=== PATIENT | male | born 1965 | race Caucasian/White ===

== ENCOUNTER 2017-01-03 20:37 | Observation (INO) | payer MEDICARE ==
[~2017-01-03] VITALS: Ht 167.6 cm; Wt 68.0 kg
[2017-01-03 20:48] VITALS: BP 144/80; PULSE 90; RESP 14; TEMP 98; O2SAT 99
[2017-01-03] MEDS ORDERED: ASPIRIN 81 MG CHEW TAB PO ONE (21:00)
[2017-01-03] MEDS ORDERED: SODIUM CHLORIDE 0.9% FLUSH 5 ML FLUSH IVF PRN (21:00)
[2017-01-03] MEDS ORDERED: SODIUM CHLORID 0.9% 500 ML INJ 500 ML IV ONE (21:00)
--- NOTE | 2017-01-03 21:11 | PD ---
HPI Chief Complaint: Chest Pain Time Seen by Provider: 21:00 Travel History International Travel<30 days: No Contact w/Intl Traveler<30days: No Traveled to known affect area: No History of Present Illness HPI Patient is a 51-year-old male presenting to emergency for evaluation of chest pain. Patient states the pain started approximately 1 hour prior to arrival, he localizes over the left anterior chest wall. He also reports shortness of breath and nausea. Patient does have a history of asthma/COPD and is been out of his inhaler for approximately one week. Patient denies any fever, chills, abdominal pain, radiation of the chest pain. He states the chest pain is worse with respirations. He reports the pain as a 6 out of 10 and describes it as sharp. Patient's past medical history again includes COPD, asthma, anxiety. He is on Xanax 3 times daily for this however he has been out for a week. He is from [place], he came here with friends for bike week and he hasn't been able to find his friend since this morning. He currently has nowhere to stay and is no way to get home. Patient has a primary care provider Dr. Joe Landaverde in [place]. [facility] Past Medical History Asthma: Yes Anxiety: Yes COPD: Yes Diminished Hearing: No Tetanus Vaccination: Unknown Influenza Vaccination: No Past Surgical History Other Surgery: Yes (FACIAL SX, LT ELBOW) Social History Alcohol Use: Yes Tobacco Use: Yes Substance Use: No Allergies-Medications (Allergen,Severity, Reaction): Coded Allergies: Tramadol (Verified Allergy, Severe, Swelling, 01/03/17) Review of Systems Except as stated in HPI: all other systems reviewed are Neg HENT: No: Headaches Cardiovascular: Positive: Chest Pain or Discomfort, No: Dyspnea on exertion Respiratory: Positive: Shortness of Breath, No: Cough, Wheezing, Pleuritic Pain Gastrointestinal: Positive: Nausea, No: Vomiting, Diarrhea, Abdominal Pain Genitourinary: No: Dysuria Musculoskeletal: No: Myalgias Neurologic: No: Dizziness, Syncope, Focal Abnormalities, Change in Mentation Physical Exam Narrative GENERAL: Well-developed, well-nourished, alert male. Resting comfortably in no acute distress. SKIN: Warm and dry. HEAD: Atraumatic. Normocephalic. EYES: Pupils equal and round. No scleral icterus. No injection or drainage. ENT: No nasal bleeding or discharge. Mucous membranes pink and moist. NECK: Trachea midline. No JVD. CARDIOVASCULAR: Tachycardic. No murmur appreciated. RESPIRATORY: No accessory muscle use. Clear to auscultation. Breath sounds equal bilaterally. No wheezing, rhonchi, rales noted. GASTROINTESTINAL: Abdomen soft, non-tender, nondistended. Hepatic and splenic margins not palpable. MUSCULOSKELETAL: No obvious deformities. No clubbing. No cyanosis. No edema. NEUROLOGICAL: Awake and alert. No obvious cranial nerve deficits. Motor grossly within normal limits. Normal speech. PSYCHIATRIC: Appropriate mood and affect; insight and judgment normal. Data Data Last Documented VS Vital Signs Date Time Temp Pulse Resp B/P Pulse Ox O2 Delivery O2 Flow Rate FiO2 01/03/17 21:14 16 100 Room Air 01/03/17 20:49 89 01/03/17 20:48 98.0 144/80 Orders Ckmb (Isoenzyme) Profile (01/03/17 21:00) Complete Blood Count With Diff (01/03/17 21:00) Comprehensive Metabolic Panel (01/03/17 21:00) Magnesium (Mg) (01/03/17 21:00) Prothrombin Time / Inr (Pt) (01/03/17 21:00) Act Partial Throm Time (Ptt) (01/03/17 21:00) Troponin I (01/03/17 21:00) Chest, Single Ap (01/03/17 21:00) Ecg Monitoring (01/03/17 21:00) Bilateral Bp Monitoring (01/03/17 21:00) Iv Access Insert/Monitor (01/03/17 21:00) Oximetry (01/03/17 21:00) Oxygen Administration (01/03/17 21:00) Aspirin Chew (Aspirin Chew) (01/03/17 21:00) Sodium Chloride 0.9% Flush (Ns Flush) (01/03/17 21:00) Sodium Chlorid 0.9% 500 Ml Inj (Ns 500 M (01/03/17 21:00) Electrocardiogram (01/03/17 21:04) CKMB (01/03/17 22:10) CKMB% (01/03/17 22:10) Activity Bed Rest With Brp (01/04/17 00:58) Vital Signs (Adult) Q4H (01/04/17 00:58) Cardiac Rhythm .As Directed (01/04/17 00:58) ^ Notify Dr: Other .PRN (01/04/17 00:58) ^ Notify DrWatson Parameters (01/04/17 00:58) Resp Oxygen Nasal Cannula (01/04/17 ) Ckmb (Isoenzyme) Profile (01/04/17 01:00) Ckmb (Isoenzyme) Profile (01/04/17 04:00) Troponin I (01/04/17 01:00) Troponin I (01/04/17 04:00) Electrocardiogram (01/04/17 01:00) ^ Obtain (01/04/17 00:58) Sodium Chloride 0.9% Flush (Ns Flush) (01/04/17 01:00) Sodium Chloride 0.9% Flush (Ns Flush) (01/04/17 09:00) Hose Finisher / Telemetry MARISSA.Q8H (01/04/17 00:58) Admit Order (Ed Use Only) (01/04/17 ) Labs Laboratory Tests Test 01/03/17 22:10 White Blood Count 8.1 TH/MM3 Red Blood Count 4.69 MIL/MM3 Hemoglobin 13.2 GM/DL Hematocrit 39.5 % Mean Corpuscular Volume 84.2 FL Mean Corpuscular Hemoglobin 28.2 PG Mean Corpuscular Hemoglobin 33.5 % Concent Red Cell Distribution Width 14.6 % Platelet Count 514 TH/MM3 Mean Platelet Volume 7.3 FL Neutrophils (%) (Auto) 52.3 % Lymphocytes (%) (Auto) 35.7 % Monocytes (%) (Auto) 8.3 % Eosinophils (%) (Auto) 1.9 % Basophils (%) (Auto) 1.8 % Neutrophils # (Auto) 4.3 TH/MM3 Lymphocytes # (Auto) 2.9 TH/MM3 Monocytes # (Auto) 0.7 TH/MM3 Eosinophils # (Auto) 0.2 TH/MM3 Basophils # (Auto) 0.1 TH/MM3 CBC Comment DIFF FINAL Differential Comment Prothrombin Time 10.8 SEC Prothromb Time International 1.0 RATIO Ratio Activated Partial 27.8 SEC Thromboplast Time Sodium Level 141 MEQ/L Potassium Level 3.6 MEQ/L Chloride Level 106 MEQ/L Carbon Dioxide Level 24.7 MEQ/L Anion Gap 10 MEQ/L Blood Urea Nitrogen 13 MG/DL Creatinine 0.91 MG/DL Estimat Glomerular Filtration 88 ML/MIN Rate Random Glucose 96 MG/DL Calcium Level 8.8 MG/DL Magnesium Level 2.1 MG/DL Total Bilirubin 0.2 MG/DL Aspartate Amino Transf 19 U/L (AST/SGOT) Alanine Aminotransferase 44 U/L (ALT/SGPT) Alkaline Phosphatase 80 U/L Total Creatine Kinase 110 U/L Creatine Kinase MB 1.0 NG/ML Troponin I LESS THAN 0.02 NG/ML Total Protein 7.3 GM/DL Albumin 3.4 GM/DL MDM Medical Decision Making Medical Screen Exam Complete: Yes Emergency Medical Condition: Yes Interpretation(s) Vital Signs Date Time Temp Pulse Resp B/P Pulse Ox O2 Delivery O2 Flow Rate FiO2 01/03/17 20:49 89 16 100 Room Air 01/03/17 20:48 98.0 90 14 144/80 99 Differential Diagnosis Chest pain versus chest wall pain versus anxiety versus unstable angina versus pleurisy versus other Narrative Course Patient is a 51-year-old male presenting to emergency for evaluation of chest pain. The pain started approximately an hour prior to arrival. Is localized over the left chest wall. Patient reports a history of anxiety, his anxiety has been heightened since he has lost contact with his [facility]. Patient has been unable to find his friend since this morning. He has no way home at this time. Abscess and imaging ordered and pending. Patient is resting comfortably, his vital signs are stable. Care of Patient is transferred to my attending physician who will determine patient's disposition. Johanna Cheung Jan 03, 2017 21:11
[2017-01-03 21:14] VITALS: RESP 16; O2SAT 100
--- NOTE | 2017-01-03 22:21 | RADRPT ---
EXAM DATE/TIME: 01/03/2017 21:25 [facility] COMPARISON: No previous studies available for comparison. INDICATIONS : Chest pain. MEDICAL HISTORY : Chronic obstructive pulmonary disease. Asthma. SURGICAL HISTORY : None. ENCOUNTER: Initial ACUITY: 1 day PAIN SCORE: 6/10 LOCATION: chest FINDINGS: A single view of the chest demonstrates the lungs to be symmetrically aerated without evidence of mas s, infiltrate or effusion. The cardiomediastinal contours are unremarkable. Osseous structures are intact. CONCLUSION: No acute disease. Wilfredo Toledo MD on January 03, 2017 at 22:20 Board Certified Radiologist. This report was verified electronically.
[2017-01-03 22:46] LABS: AUTOMATED NEUTROPHIL # 4.3 TH/MM3 (1.8-7.7); BASOPHIL # 0.1 TH/MM3 (0-0.2); BASOPHIL % 1.8 % (0.0-2.0); EOSINOPHIL # 0.2 TH/MM3 (0-0.4); EOSINOPHIL % 1.9 % (0.0-4.0); HEMATOCRIT 39.5 % (39.0-51.0); HEMO FLAGS DIFF FINAL; LYMPH % 35.7 % (9.0-44.0); LYMPHOCYTE # 2.9 TH/MM3 (1.0-4.8); MEAN CELL VOLUME 84.2 FL (80.0-100.0); MEAN CORPUSCULAR HEMOGLOBIN 28.2 PG (27.0-34.0); MEAN CORPUSCULAR HGB CONC 33.5 % (32.0-36.0); MONO % 8.3 % (0.0-8.0); NEUT % 52.3 % (16.0-70.0); PLATELET COUNT 514 TH/MM3 (150-450); RED BLOOD COUNT 4.69 MIL/MM3 (4.50-5.90); RED CELL DISTRIBUTION WIDTH 14.6 % (11.6-17.2); WHITE BLOOD COUNT 8.1 TH/MM3 (4.0-11.0)
[2017-01-03 23:00] LABS: APTT (PATIENT) 27.8 SEC (24.3-30.1); PROTHROMBIN TIME - PATIENT 10.8 SEC (9.8-11.6)
[2017-01-03 23:11] LABS: ANION GAP 10 MEQ/L (5-15); AST (GOT) 19 U/L (15-37); BICARBONATE 24.7 MEQ/L (21.0-32.0); BLOOD UREA NITROGEN 13 MG/DL (7-18); CHLORIDE 106 MEQ/L (98-107); GLOMERULAR FILTRATION RATE 88 ML/MIN (>89); MAGNESIUM 2.1 MG/DL (1.5-2.5); POTASSIUM 3.6 MEQ/L (3.5-5.1); SODIUM (NA) 141 MEQ/L (136-145)
[2017-01-03 23:16] LABS: ALKALINE PHOSPHATASE 80 U/L (45-117); ALT (GPT) 44 U/L (12-78); CREATINE KINASE 110 U/L (39-308); TOTAL BILIRUBIN ADULT 0.2 MG/DL (0.2-1.0)
[2017-01-04] MEDS ORDERED: SODIUM CHLORIDE 0.9% FLUSH 5 ML FLUSH IVF PRN (01:00)
[2017-01-04 02:01] VITALS: BP 133/74; PULSE 71; RESP 16; O2SAT 98
[2017-01-04 02:43] LABS: CREATINE KINASE 99 U/L (39-308)
[2017-01-04 05:09] LABS: CREATINE KINASE 95 U/L (39-308)
[2017-01-04] MEDS ORDERED: SODIUM CHLORIDE 0.9% FLUSH 5 ML FLUSH IVF SCH (09:00)
--- NOTE | 2017-01-04 23:44 | EKG ---
Date Performed: 01/04/2017 Time Performed: 01:59:16 PTAGE: 51 years EKG: Sinus rhythm POSSIBLE RIGHT VENTRICULAR CONDUCTION DELAY BORDERLINE ECG PREVIOUS TRACING : 01/03/2017 21.04 Compared to prior tracing no significant change DOCTOR: Yariel Isbell Interpretating Date/Time 01/04/2017 23:43:34
--- NOTE | 2017-01-04 23:50 | EKG ---
Date Performed: 01/03/2017 Time Performed: 21:04:36 PTAGE: 51 years EKG: Sinus rhythm NORMAL ECG NO PREVIOUS TRACING DOCTOR: Yariel Isbell Interpretating Date/Time 01/04/2017 23:48:53
--- NOTE | 2017-01-17 17:44 | PD ---
Physical Exam Narrative I, Dr. Salinas, have reviewed the advance practice practitioner's documentation and am in agreement, met with the patient face to face, made the diagnosis, and the medical decision making was done by me. *My assessment and Findings: Patient is a 51 year old male who comes in complaining of chest pain. He says he was left here by his friends, he is not from [facility]. He says he has a lot of anxiety. Exam shows heart RRR, lungs CTA, AOx4, no neurologic abnormalities. Data Data Orders Ckmb (Isoenzyme) Profile (01/03/17 21:00) Complete Blood Count With Diff (01/03/17 21:00) Comprehensive Metabolic Panel (01/03/17 21:00) Magnesium (Mg) (01/03/17 21:00) Prothrombin Time / Inr (Pt) (01/03/17 21:00) Act Partial Throm Time (Ptt) (01/03/17 21:00) Troponin I (01/03/17 21:00) Chest, Single Ap (01/03/17 21:00) Ecg Monitoring (01/03/17 21:00) Bilateral Bp Monitoring (01/03/17 21:00) Iv Access Insert/Monitor (01/03/17 21:00) Oximetry (01/03/17 21:00) Oxygen Administration (01/03/17 21:00) Aspirin Chew (Aspirin Chew) (01/03/17 21:00) Sodium Chloride 0.9% Flush (Ns Flush) (01/03/17 21:00) Sodium Chlorid 0.9% 500 Ml Inj (Ns 500 M (01/03/17 21:00) Electrocardiogram (01/03/17 21:04) CKMB (01/03/17 22:10) CKMB% (01/03/17 22:10) Activity Bed Rest With Brp (01/04/17 00:58) Vital Signs (Adult) Q4H (01/04/17 00:58) Cardiac Rhythm .As Directed (01/04/17 00:58) ^ Notify Dr: Other .PRN (01/04/17 00:58) ^ Notify Dr. Parameters (01/04/17 00:58) Resp Oxygen Nasal Cannula (01/04/17 ) Ckmb (Isoenzyme) Profile (01/04/17 01:00) Ckmb (Isoenzyme) Profile (01/04/17 04:00) Troponin I (01/04/17 01:00) Troponin I (01/04/17 04:00) Electrocardiogram (01/04/17 01:00) ^ Obtain (01/04/17 00:58) Sodium Chloride 0.9% Flush (Ns Flush) (01/04/17 01:00) Sodium Chloride 0.9% Flush (Ns Flush) (01/04/17 09:00) Manager Event / Telemetry MARISSA.Q8H (01/04/17 00:58) Admit Order (Ed Use Only) (01/04/17 ) MDM Supervised Visit with PRAMOD: Yes Narrative Course IV established, labs sent. ECG shows no signs of ischemia. Labs including first troponin show no acute abnormalities. Patient was given aspirin. Patient placed in chest pain center for further management. Diagnosis Primary Impression: Chest pain Qualified Code: R07.9 - Chest pain, unspecified type Admitting Information Admitting Physician Requests: Observation Patient Instructions: Against Medical Advice (DC) Sudha Salinas MD Jan 17, 2017 17:44
== END 2017-01-04 05:55 | disposition home or self-care (01) ==
LOC: NEPE 20:37 → NEDA 01-04 01:00 → NEDH 01-04 05:00
PROVIDERS: ADMIT Internal Medicine Cardiovascular Disease; ATTEND Internal Medicine Cardiovascular Disease
DX: R07.9 Chest pain, unspecified (principal); R11.0 Nausea; R06.02 Shortness of breath; J44.9 Chronic obstructive pulmonary disease, unspecified; J45.909 Unspecified asthma, uncomplicated; F41.9 Anxiety disorder, unspecified; F17.210 Nicotine dependence, cigarettes, uncomplicated; R94.31 Abnormal electrocardiogram [ECG] [EKG]
CPT/HCPCS: 71010; 80053; 82550; 82552; 83735; 84484; 85025; 85610; 85730; 93005; 96374; 99285; G0378; J7040